=== PATIENT | female | born 1970 | race American Indian/Alaskan Native ===

== ENCOUNTER 2017-11-22 12:53 | Emergency (ER) | payer BC ==
--- NOTE | 2017-11-22 15:04 | Cat Scan Report ---
FINAL REPORT PROCEDURE: CT HEAD/BRAIN WO CON TECHNIQUE: Computerized tomography of the head was performed without contrast material. HISTORY: headache COMPARISON: No prior studies are available for comparison. FINDINGS: Brain: Brain density appears normal. No evidence of intracranial hemorrhage. No parenchymal hemorrhage, mass lesions or mass effect are seen. No abnormal extraxial fluid collects or masses are seen. Ventricles: Ventricles are normal size and are midline. Bone Windows: No evidence of skull fracture. Paranasal sinuses: Visualized portions are clear. Mastoid air cells: Visualized portions are clear. IMPRESSION: Negative examination
[2017-11-22] MEDS ORDERED: REGLAN IV ONE (21:22)
[2017-11-22] MEDS ORDERED: TORADOL IV ONE (21:23)
[2017-11-22] MEDS ORDERED: NACL 0.9% 500 ML 500 ML IV ONE (21:23)
[2017-11-22] MEDS ORDERED: BENADRYL IV ONE (21:23)
--- NOTE | 2017-11-22 21:24 | Emergency Department Report ---
ED Headache HPI - General Chief Complaint: Headache Stated Complaint: HEADACHE Time Seen by Provider: 11/22/17 21:11 - History of Present Illness Initial Comments: 47-year-old female past medical history migraines, Graves' disease, hypothyroidism presents with complaint of 10 days of migraine headache consistent with her previous migraines. Patient denies nausea vomiting blurry vision chest pain palpitations shortness of breath dysuria or increased urinary frequency. Patient has been taking Tylenol with minimal relief of headache. Patient is awake alert and oriented 3. Denies upper or lower extremity paresthesias. Denies any neck rigidity. Denies any photophobia but has slight phonophobia. Patient states headache is currently a 8 out of 10 but has had worse headaches in the past. Patient is fully lucid and able to provide a detailed history. LMP is now. States she has been taking her thyroid medicine. Consistently and does have a primary care doctor. Denies any earache nasal congestion or sore throat. Timing/Duration: waxing and waning, other (10 days) Quality: moderate Head Injury Location: frontal, occipital Recent Head Trauma: frequent headaches, chronic headaches Allergies/Adverse Reactions: Allergies No Known Allergies Allergy (Verified 11/22/17 13:40) Home Medications: Ambulatory Orders Acetaminophen [Mapap] 500 mg PO TID #15 capsule 07/22/16 Cyclobenzaprine [Flexeril 10 MG TAB] 10 mg PO BID PRN #10 tablet 07/22/16 Ibuprofen [Motrin] 600 mg PO Q8H PRN #20 tablet 11/22/17 Sulfamethoxazole/Trimethoprim [Bactrim DS TAB] 1 each PO BID #6 tablet 11/22/17 ED Review of Systems ROS: Stated complaint: HEADACHE Other details as noted in HPI Constitutional: denies: chills, fever Eyes: denies: eye pain, eye discharge, vision change ENT: denies: ear pain, throat pain Respiratory: denies: cough, shortness of breath, wheezing Cardiovascular: denies: chest pain, palpitations Endocrine: no symptoms reported Gastrointestinal: denies: abdominal pain, nausea, diarrhea Genitourinary: denies: urgency, dysuria, discharge Musculoskeletal: denies: back pain, joint swelling, arthralgia Skin: denies: rash, lesions Neurological: headache (10 days of headache). denies: weakness, paresthesias Psychiatric: denies: anxiety, depression Hematological/Lymphatic: denies: easy bleeding, easy bruising ED Past Medical Hx - Past Medical History Previous Medical History?: Yes Additional medical history: GRAVES DISEASE - Social History Smoking Status: Never Smoker Substance Use Type: Alcohol - Medications Home Medications: Home Medications Medication Instructions Recorded Confirmed Last Taken Type Acetaminophen [Mapap] 500 mg PO TID #15 capsule 07/22/16 Unknown Rx Cyclobenzaprine [Flexeril 10 MG 10 mg PO BID PRN #10 tablet 07/22/16 Unknown Rx TAB] Ibuprofen [Motrin] 600 mg PO Q8H PRN #20 tablet 11/22/17 Unknown Rx Sulfamethoxazole/Trimethoprim 1 each PO BID #6 tablet 11/22/17 Unknown Rx [Bactrim DS TAB] ED Physical Exam - General Limitations: No Limitations General appearance: alert, in no apparent distress - Head Head exam: Present: atraumatic, normocephalic - Eye Eye exam: Present: normal appearance, PERRL, EOMI Pupils: Present: normal accommodation - ENT ENT exam: Present: mucous membranes moist - Neck Neck exam: Present: normal inspection, full ROM (neck flexion and extension is intact there is no neck tenderness on palpation no meningismus on exam) - Respiratory Respiratory exam: Present: normal lung sounds bilaterally. Absent: respiratory distress - Cardiovascular Cardiovascular Exam: Present: regular rate, normal rhythm. Absent: systolic murmur, diastolic murmur, rubs, gallop - GI/Abdominal GI/Abdominal exam: Present: soft, normal bowel sounds - Extremities Exam Extremities exam: Present: normal inspection - Back Exam Back exam: Present: normal inspection - Neurological Exam Neurological exam: Present: alert, oriented X3, CN II-XII intact, normal gait - Expanded Neurological Exam Expanded Patient oriented to: Present: person, place, time Cranial nerves: EOM's Intact: Normal, Facial Sensation: Normal Cerebellar function: Finger to Nose: Normal, Heel to Brown: Normal, Romberg: Normal Sensory exam: Upper Extremity Light Touch: Normal, Lower Extremity Light Touch: Normal Motor strength exam: RUE: 5, LUE: 5, RLE: 5, LLE: 5 DTR: tricep (R): 3+, tricep (L): 3+, knee (R): 3+, knee (L): 3+ Best Eye Response (Donny): (4) open spontaneously Best Motor Response (Planada): (6) obeys commands Best Verbal Response (Donny): (5) oriented [place] Total: 15 - Psychiatric Psychiatric exam: Present: normal affect, normal mood - Skin Skin exam: Present: warm, dry, intact, normal color. Absent: rash ED Course Vital Signs 11/22/17 13:40 Temperature 98.5 F Pulse Rate 78 Respiratory 16 Rate Blood Pressure 146/85 O2 Sat by Pulse 96 Oximetry ED Medical Decision Making - Lab Data Result diagrams: 11/22/17 21:29 11/22/17 21:29 - Medical Decision Making A/P: Migraine headache, possible uti 1-patient had full resolution of headache with dose of Reglan and Toradol. Patient's headache is currently a 0 out of 10. Patient is asymptomatic upon discharge. No clinical neurological deficits on exam. Cranial nerves II through XII are intact on exam. Patient is ambulatory without assistance. 2-Motrin when necessary for headache. I advised patient to follow up with primary care and also referred her to neurology 3-CT head is unremarkable. Labs are unremarkable. Patient's thyroid function panel suggestive of subclinical hypothyroidism. Patient is currently taking levothyroxine. I advised her to follow-up with her primary care doctor regarding this chronic issue. 4-patient has some leukocyte esterase and the epiphyses and urine with cloudy urine. Patient states that while she does not have any urinary symptoms now she may have had some early this week. Will give patient short course of Bactrim. Urine culture sent Critical care attestation.: If time is entered above; I have spent that time in minutes in the direct care of this critically ill patient, excluding procedure time. ED Disposition Clinical Impression: Migraine Qualifiers: Migraine type: unspecified Status migrainosus presence: without status migrainosus Intractability: not intractable Qualified Code(s): G43.909 - Migraine, unspecified, not intractable, without status migrainosus UTI (urinary tract infection) Qualifiers: Urinary tract infection type: site unspecified Hematuria presence: without hematuria Qualified Code(s): N39.0 - Urinary tract infection, site not specified Disposition: DC-01 TO HOME OR SELFCARE Is pt being admited?: No Does the pt Need Aspirin: No Condition: Stable Instructions: Urinary Tract Infection in Women (ED), Acute Headache (ED), Migraine Headache (ED) Prescriptions: Ibuprofen [Motrin] 600 mg PO Q8H PRN #20 tablet PRN Reason: Pain Sulfamethoxazole/Trimethoprim [Bactrim DS TAB] 1 each PO BID #6 tablet Referrals: [facility] [Provider Group] - 3-5 Days TERRENCE REMY MD [Staff Physician] - 3-5 Days Forms: Work/School Release Form(ED) Time of Disposition: 23:01
[2017-11-22 21:40] LABS: Red Blood Count 4.35 M/mm3 (3.65-5.03)
[2017-11-22 21:41] LABS: Mean Corpuscular HGB Conc 29 % (30-34); Platelet Count 531 K/mm3 (140-440)
[2017-11-22 21:49] LABS: Hematocrit 28.9 % (30.3-42.9); Hemoglobin 8.5 gm/dl (10.1-14.3); Mean Corpuscular Hemoglobin 20 pg (28-32); Mean Corpuscular Volume 66 fl (79-97)
[2017-11-22 22:09] LABS: BUN/Creatinine Ratio 19; Blood Urea Nitrogen 13 mg/dL (7-17); Calcium 8.9 mg/dL (8.4-10.2); Hemolysis Index 30
[2017-11-22 22:52] LABS: Bacteria,Urine 1+ /HPF (Negative); Bilirubin,Urine NEG (Negative); Blood,Urine NEG (Negative); Color,Urine Yellow (Yellow); Mucus,Urine FEW /HPF; Protein,Urine <15 mg/dL mg/dL (Negative)
[2017-11-22 23:16] LABS: Anisocytosis 1+; Total Cells Counted 100
[2017-11-22 23:17] LABS: Burr Cells Few; Hypochromasia 1+; Platelet Estimate Consistent w Auto; Target Cells 1+
[2017-11-22 23:22] VITALS: BP 143/79
== END 2017-11-22 23:20 | disposition home or self-care (01) ==
LOC: ED 12:53
DX: G43.909 Migraine, unspecified, not intractable, without status migrainosus (principal); N39.0 Urinary tract infection, site not specified
CPT/HCPCS: 36415; 70450; 80048; 81001; 84439; 84443; 85007; 85025; 87086; 96374; 96375; 99284; J1200; J1885; J2765; J7040